=== PATIENT | male | born 1950 ===

== ENCOUNTER 2017-09-12 11:00 | Inpatient (IN) | payer OTHER ==
[~2017-09-12] VITALS: Ht 175.3 cm; Wt 83.9 kg
[~2017-09-12 11:00] MED LIST: LOTREL 5-10 MG1 CAP PO
[2017-09-22] MEDS ORDERED: PERCOCET 5-3251 EACH PO (08:59)
[2017-09-22] MEDS ORDERED: NEURONTIN600 MG PO (08:59)
[2017-09-22] MEDS ORDERED: MIRALAX17 GM PO (08:59)
== END 2017-09-22 10:52 | disposition home or self-care (01) | DRG 355 ==
LOC: O/R 09-20 05:35 → SURG 09-20 05:35 → O/R 09-20 09:03 → SURG 09-20 11:00
PROVIDERS: Surgery
PROC: 0JX80ZZ Transfer Abdomen Subcutaneous Tissue and Fascia, Open Approach (ICD-10-PCS; 2017-09-20)
PROC: 0WUF4JZ Supplement Abdominal Wall with Synthetic Substitute, Percutaneous Endoscopic Approach (ICD-10-PCS; principal; 2017-09-20 07:00)
DX: K43.0 Incisional hernia with obstruction, without gangrene (principal); I10 Essential (primary) hypertension

== ENCOUNTER 2022-04-10 08:00 | Inpatient (IN) | payer OTHER ==
[~2022-04-10] VITALS: Ht 175.3 cm; Wt 77.6 kg
[~2022-04-10 08:00] MED LIST changes: +MIRALAX17 GM PO; +NEURONTIN600 MG PO; +PERCOCET 5-3251 EACH PO
[2022-04-10] MEDS ORDERED: SYNTHROID50 MCG PO (09:48)
[2022-04-10] MEDS ORDERED: ZESTRIL5 MG PO (09:48)
[2022-04-13] MEDS ORDERED: TADALAFIL20 MG (13:37)
[2022-04-13] MEDS ORDERED: GEMFIBROZIL600 MG (13:37)
[2022-04-13] MEDS ORDERED: NIFEDIPINE ER60 M1 (13:37)
[2022-04-15] MEDS ORDERED: NEURONTIN600 M1 PO (07:23)
[2022-04-15] MEDS ORDERED: TRAMADOL HCL50 MG PO (07:23)
[2022-04-15] MEDS ORDERED: TYLENOL ARTHRI650 MG PO (07:23)
[2022-04-15] MEDS ORDERED: MIRALAX17 GM PO (07:23)
[2022-04-17] MEDS ORDERED: NIFEDIPINE20 MG PO (11:54)
== END 2022-04-16 10:53 | disposition home or self-care (01) | DRG 337 ==
LOC: SURH 04-13 08:00 → SURG 04-13 10:07 → O/R 04-13 10:07 → SURH 04-13 15:15 → SURG 04-13 16:27
PROVIDERS: ADMIT Surgery; ATTEND Surgery
PROC: 0WUF0JZ Supplement Abdominal Wall with Synthetic Substitute, Open Approach (ICD-10-PCS; 2022-04-13)
PROC: 0DNW0ZZ Release Peritoneum, Open Approach (ICD-10-PCS; principal; 2022-04-13 15:15)
DX: K43.0 Incisional hernia with obstruction, without gangrene (principal); K66.0 Peritoneal adhesions (postprocedural) (postinfection); I10 Essential (primary) hypertension; E78.5 Hyperlipidemia, unspecified; E03.9 Hypothyroidism, unspecified; I12.9 Hypertensive chronic kidney disease with stage 1 through stage 4 chronic kidney disease, or unspecified chronic kidney disease; N18.30 Chronic kidney disease, stage 3 unspecified; Z20.822 Contact with and (suspected) exposure to COVID-19

== ENCOUNTER 2022-04-17 11:09 | Inpatient (IN) | payer OTHER ==
[~2022-04-17] VITALS: Ht 175.3 cm; Wt 81.6 kg
[~2022-04-17 11:09] MED LIST changes: +GEMFIBROZIL600 MG; +NEURONTIN600 M1 PO; +NIFEDIPINE ER60 M1; +SYNTHROID50 MCG PO; +TADALAFIL20 MG; +TRAMADOL HCL50 MG PO; +TYLENOL ARTHRI650 MG PO; +ZESTRIL5 MG PO
[2022-04-17] MEDS ORDERED: NIFEDIPINE20 MG PO (11:54)
== END 2022-04-20 13:12 | disposition home or self-care (01) | DRG 389 ==
LOC: ER 11:09 → SURH 23:30
PROVIDERS: ADMIT Surgery; ATTEND Surgery
PROC: BW21ZZZ Computerized Tomography (CT Scan) of Abdomen and Pelvis (ICD-10-PCS; principal; 2022-04-17)
PROC: BB24ZZZ Computerized Tomography (CT Scan) of Bilateral Lungs (ICD-10-PCS; 2022-04-17)
DX: K91.30 Postprocedural intestinal obstruction, unspecified as to partial versus complete (principal); K91.89 Other postprocedural complications and disorders of digestive system; I10 Essential (primary) hypertension; E03.9 Hypothyroidism, unspecified; E78.5 Hyperlipidemia, unspecified